=== PATIENT | female | born 1980 | race Hispanic/Latino ===

== ENCOUNTER → 2017-07-06 14:00 | Day surgery (SDC) | payer SELFPAY ==
--- NOTE | 2017-07-13 05:30 | HP.PCM_ITS ---
(1) Sterilization Status: Acute History and Physical Date of Admission: 07/13/17 Intake Vital Signs 3 05/30/17 Height 4 ft 9 in 05/30/17 Weight: 170 lb 05/30/17 Body Mass Index (BMI) 36.8 05/30/17 Blood Pressure 98/64 05/30/17 Blood Pressure Location Rt brachial 05/30/17 Blood Pressure Position Sitting Allergies Penicillins Adverse Reaction (Verified 05/30/17 10:04) Unknown Medications levothyroxine 88 mcg tablet PO 05/30/17 [History Confirmed 05/30/17] Pregancy History 2 3 Elective abortions Hx Para 2 Spontaneous abortions Hx # Term Pregnancies Ectopic pregnancies Hx # Pregnancies Multiple births # of living children Past Pregnancies Del. Date Name GA/Weeks Outcome Route Bth Weight Gen Labor Lgth Anesthesia Del Locatn Provider FOB Unknown Prasad 2010 Male [facility] Unknown [place] [facility] Medical History Adult hypothyroidism (Acute) C/C x2 (Acute) ALAINA I (cervical intraepithelial neoplasia I) (Acute) D & C (Acute) Social History Smoking Status: Never smoker alcohol intake: never substance use type: does not use what type of physical activity do you participate in: none, walking frequency: 5-6 times per week duration: 30-45 minutes/day seatbelt use: always do you feel safe at home: Yes additional social history: Kunal HPI 36 yo desires sterilization and mirena IUD removal. Female Reproductive History Control Method: mirena Questions: Metorrhagia: No, Sexually active: Yes, PCB: No ROS Const Constitutional: Reports as per HPI and weight gain; denies poor appetite, fatigue, increased appetite or weight loss Cardio Card: Denies chest pain Resp Resp: Denies dyspnea or cough GI GI: Reports as per HPI; denies bloating, abdominal pain, constipation, vomiting or nausea : Reports as per HPI, vaginal odor, urinary frequency and other; denies blood in urine, vaginal itching, vaginal dryness, vaginal discharge, urinary urgency, urinary incontinence, pelvic pain, painful urination, difficulty urinating, prolapse symptoms or nipple discharge Skin Skin/Breast: Denies breast pain, breast skin changes, nipple discharge, breast lump or changing lesions Exam Const General: cooperative, healthy appearing, comfortable, no acute distress, well developed, well groomed [facility] Head: normal to inspection, normocephalic Ears: hearing grossly normal bilaterally, external ears normal Nose: external nose normal Face and sinus: normal facial exam Neck Neck: normal visual inspection, full ROM, no lymphadenopathy Thyroid: thyroid normal Chest Chest palpation & inspection: normal inspection of the chest Breast inspection: normal inspection of the breasts, normal inspection of the axillae Breast palpation: normal palpation of the breasts, normal palpation of the axillae, no axillary lymphadenopathy Resp Effort & Inspection: normal respiratory effort GI Inspection: normal to inspection, non-distended Palpation: no guarding, soft, no hepatosplenomegaly General: bladder normal to palpation External Female Exam: normal external appearance, normal appearance of the urethra, no lesions Urethra: normal appearance of the urethra, normal palpation Speculum Exam - Vagina: normal appearance of the vagina, normal vaginal discharge Speculum Exam - Cervix: normal appearance of the cervix, no cervical discharge, no lesions, nontender, other (strings seen) Bimanual Exam- Vagina & Uterus: No cervical tenderness, normal bimanual exam, uterine size normal, bladder normal to palpation, uterine mobility normal, uterine consistency normal, uterus non-tender, no cervical motion tenderness Bimanual Exam- Adnexa, other: normal adnexae, no adnexal masses, adnexae non- tender Skin General: no rashes or lesions noted Neuro General: alert, moves all extremities, no focal motor deficits Extrem General: no pedal edema, normal to inspection Psych Appearance: grossly normal Mental Status: mental status grossly normal Affect: normal affect Speech and Movement: speech and movement normal Attitude: cooperative Assessment & Plan Problems sterilization request Plan mirena IUD removal and laparoscopic bilateral salpingectomy Orders
[2017-07-13 08:07] LABS: Internal QC Validated? YES +Cl - CLEAR BKGD; Pregnancy, Urine Negative Negative
[2017-07-13 08:14] LABS: Hemoglobin 12.9 g/dl (12.0-15.0); Mean Corp Hgb Conc 33.1 g/gl (32-36); Mean Corpuscular Hgb 29.5 pg (27.0-32.0); Mean Corpuscular Volume 89.2 fL (81-99); Mean Platelet Vol. 9.8 fl (6.2-12.0); Platelet Count 223 K/mm3 (150-450); RBC Distribution Width CV 13.1 % (11.6-14.6); RBC Distribution Width SD 42.6 fl (35.1-43.9); Red Blood Count 4.37 M/mm3 (4.2-5.4); Scan Indicated on CBC? Y/N NO; White Blood Count 4.9 K/mm3 (4.4-11.0)
[2017-07-13 08:16] VITALS: BP 119/70; PULSE 67; RESP 16; TEMP 36; O2SAT 100; BMI 37.5
--- NOTE | 2017-07-13 08:57 | PCM.OPRPT ---
Problem List (1) Sterilization Status: Acute Report of Operation Date of Procedure: 07/13/17 - cancelled Pre-Operative Diagnosis: sterilization and iud removal Surgery/Procedure Performed:: laparoscopic bilateral salpingectomy and mirena IUD removal- cancelled due to elevated tsh Description of Surgical Findings:: cancelled due to elevated TSH
--- OUTSIDE RECORDS SUMMARY | 2017-09-15 14:17 | XMS RPT_ITS | Clinical Summary ---
:1980 Author Organization [facility], [facility] Address [address] [place] [id number] Phone Care Team Providers Name Role Phone Jessica Tena MD Conditions or Problems Problem Name Problem Onset Status Entry Provider Comment Standard Annotate Code Date Date Description Dysuria 64594189 Active Christelle S Dysuria (SNOMED CT) / [place] SALES ENABLEMENT SPECIALIST Vaginal 743889252 Active Christelle S Vaginal irritation (SNOMED CT) / [place] irritation SALES ENABLEMENT SPECIALIST Medications Medication Instructions Start Stop Generic Name NDC Provider Date Date SYNTHROID 88 LEVOTHYROXINE [id number] Christelle S MCG TABS 5 SODIUM [place] SALES ENABLEMENT SPECIALIST Medications Administered No information available. Allergies, Adverse Reactions, Alerts Allergy Name Reaction Description Start Date Severity Status Provider PENICILLIN V Critical Active Christelle S [place] POTASSIUM SALES ENABLEMENT SPECIALIST Results Date Name Value Unit Range Flag Description Office Visit: Yeast Infection MEDS REVIEW Done Documentation of current medications (procedure) FALLRSKASSES No Fall risk assessment ORALTOBACUSE Never Tobacco smoking status INIS SMOK STATUS Never smoker Tobacco smoking status [facility] Microbiology: Culture, Genital Comprehensive ZZ-GE-unk . GE use only - for LinkLogic import when terms are not otherwise specified Plan of Care Type Date Detail Pending order *CUV - Culture, VAG/CX Comprehensive Pending order *CUUID - Urine TYSON Culture - Identificatn Pending order *CUV - Culture, VAG/CX Comprehensive Pending order *CUUID - Urine TYSON Culture - Identificatn Procedures Code Procedure Name Date Entry Date CPT-94589 UA Dipstick (Office) Vital Signs Date Name Value Unit Description BMI (Body Mass Index) 34.09 kg/m2 Body Mass Index [Ratio] Body Temperature 98.6 [degF] temperature E&M Body Temperature 37.00 [place] temperature in centigrade E&M BP Diastolic 71 mm[Hg] blood pressure, diastolic - 8462-4 BP Systolic 106 mm[Hg] blood pressure, systolic - 8480-6 Heart Rate 80 /min pulse rate E&M - 8867-4 Height 59 [in_us] height E&M - 8302-2 Height 149.86 cm height in centimeters E&M Respiratory Rate 16 /min respiratory rate E&M - 9279-1 Weight Measured 168.8 [lb_av] weight E&M - 3141-9 Weight Measured 76.57 kg weight in kilograms E&M
--- OUTSIDE RECORDS SUMMARY | 2017-09-15 14:17 | XMS RPT_ITS | Clinical Summary ---
:1980 Author Organization [facility], [facility] Address [address] [place] [address] Phone Care Team Providers Name Role Phone DEZ Stewart RN, Rufina Sharma Unavailable Unavailable Conditions or Problems Problem Name Problem Onset Status Entry Provider Comment Standard Annotate Code Date Date Description Dysuria 84530739 Active Christelle S Dysuria (SNOMED CT) / [place] SOLDERER BARREL RIBS Vaginal 073628908 Active Christelle S Vaginal irritation (SNOMED CT) / [place] irritation SOLDERER BARREL RIBS Medications Medication Instructions Start Stop Generic Name NDC Provider Date Date SYNTHROID 88 LEVOTHYROXINE [id number] Christelle S MCG TABS 5 SODIUM [place] SOLDERER BARREL RIBS Medications Administered No information available. Allergies, Adverse Reactions, Alerts Allergy Name Reaction Description Start Date Severity Status Provider PENICILLIN V Critical Active Christelle S [place] POTASSIUM SOLDERER BARREL RIBS Results Date Name Value Unit Range Flag Description Office Visit: Yeast Infection MEDS REVIEW Done Documentation of current medications (procedure) FALLRSKASSES No Fall risk assessment ORALTOBACUSE Never Tobacco smoking status NHIS SMOK STATUS Never smoker Tobacco use [facility] Microbiology: Culture, Genital Comprehensive ZZ-GE-unk Vancomycin $ GE use only - for LinkLogic 0.5 S import when terms are not otherwise specified Plan of Care Type Date Detail Appointment 09:50 AM Jessica Tena MD, [address] [place] [address], [address] Floor, [place], [address], Pending order *CUV - Culture, VAG/CX Comprehensive Pending order *CUUID - Urine TYSON Culture - Identificatn Pending order *CUV - Culture, VAG/CX Comprehensive Pending order *CUUID - Urine TYSON Culture - Identificatn Procedures Code Procedure Name Date Entry Date CPT-50743 UA Dipstick (Office) Vital Signs Date Name [...]
--- OUTSIDE RECORDS SUMMARY | 2017-09-15 14:17 | XMS RPT_ITS | Clinical Summary ---
:1980 Author Organization [facility], [facility] Address [address] [place] [address] Phone Care Team Providers Name Role Phone DEZ Stewart RN, Rufina Sharma Unavailable Unavailable Conditions or Problems Problem Name Problem Onset Status Entry Provider Comment Standard Annotate Code Date Date Description Dysuria 82772343 Active Christelle S Dysuria (SNOMED CT) / Mild[place] HARPOON ENGAGEMENT PLANNING OPERATOR Vaginal 812951336 Active Christelle S Vaginal irritation (SNOMED CT) / [place] irritation HARPOON ENGAGEMENT PLANNING OPERATOR Medications Medication Instructions Start Stop Generic Name NDC Provider Date Date SYNTHROID 88 LEVOTHYROXINE [id number] Christelle S MCG TABS 5 SODIUM [place] HARPOON ENGAGEMENT PLANNING OPERATOR Medications Administered No information available. Allergies, Adverse Reactions, Alerts Allergy Name Reaction Description Start Date Severity Status Provider PENICILLIN V Critical Active Christelle S [place] POTASSIUM [place]POON ENGAGEMENT PLANNING OPERATOR Results Date Name Value Unit Range Flag Description Office Visit: Yeast Infection MEDS REVIEW Done Documentation of current medications (procedure) FALLRSKASSES No Fall risk assessment ORALTOBACUSE Never Tobacco smoking status NHIS SMOK STATUS Never smoker Tobacco use [facility] Microbiology: Culture, Genital Comprehensive ZZ-GE-unk Vancomycin $ GE use only - for LinkLogic 0.5 S import when terms are not otherwise specified Plan of Care Type Date Detail Appointment 09:50 AM Jessica Tena MD, [address] [place] [address], [address] Floor, [place], [address], Pending order *CUV - Culture, VAG/CX Comprehensive Pending order *CUUID - Urine TYSON Culture - Identificatn Pending order *CUV - Culture, VAG/CX Comprehensive Pending order *CUUID - Urine TYSON Culture - Identificatn Procedures Code Procedure Name Date Entry Date CPT-60791 UA Dipstick (Office) Vital Signs Date Name [...]
--- OUTSIDE RECORDS SUMMARY | 2017-09-15 14:17 | XMS RPT_ITS | Clinical Summary ---
:[address] [facility], [facility] Address [address] [place] [address] Phone Care Team Providers Name Role Phone DEZ Stewart RN, Rufina Sharma Unavailable Unavailable Conditions or Problems Problem Name Problem Onset Status Entry Provider Comment Standard Annotate Code Date Date Description Dysuria 24307152 Active Christelle S Dysuria (SNOMED CT) / [place] EHS SPECIALIST Vaginal 843681170 Active Christelle S Vaginal irritation (SNOMED CT) / Mild[place] irritation EHS SPECIALIST Medications Medication Instructions Start Stop Generic Name NDC Provider Date Date SYNTHROID 88 LEVOTHYROXINE [id number] Christelle S MCG TABS 5 SODIUM [place] EHS SPECIALIST Medications Administered No information available. Allergies, Adverse Reactions, Alerts Allergy Name Reaction Description Start Date Severity Status Provider PENICILLIN V Critical Active Christelle S [place] POTASSIUM EHS SPECIALIST Results Date Name Value Unit Range Flag Description Office Visit: Yeast Infection MEDS REVIEW Done Documentation of current medications (procedure) FALLRSKASSES No Fall risk assessment ORALTOBACUSE Never Tobacco smoking status NHIS SMOK STATUS Never smoker Tobacco use [facility] Microbiology: (P) Culture, Genital Comprehensive ZZ-GE-unk . GE use only - for LinkLogic import when terms are not otherwise specified Plan of Care Type Date Detail Appointment 09:50 AM Jessica Tena MD, [address] [facility], [address] Floor, [place], [address], Pending order *CUV - Culture, VAG/CX Comprehensive Pending order *CUUID - Urine TYSON Culture - Identificatn Pending order *CUV - Culture, VAG/CX Comprehensive Pending order *CUUID - Urine TYSON Culture - Identificatn Procedures Code Procedure Name Date Entry Date CPT-66303 UA Dipstick (Office) Vital Signs Date Name [...]
--- OUTSIDE RECORDS SUMMARY | 2017-09-15 14:18 | XMS RPT_ITS | Clinical Summary ---
:1980 Author Organization [facility] Address [address] [place] [phone] Phone Care Team Providers Name Role Phone [place] METAL TILE SETTER, Christelle Mott Unavailable Conditions or Problems Problem Name Problem Onset Status Entry Provider Comment Standard Annotate Code Date Date Description Dysuria 50179073 Active Christelle S Dysuria (SNOMED CT) / [place] METAL TILE SETTER Vaginal 422638861 Active Christelle S Vaginal irritation (SNOMED CT) / [place] irritation METAL TILE SETTER Medications Medication Instructions Start Stop Generic Name NDC Provider Date Date SYNTHROID 88 LEVOTHYROXINE [id number] Christelle S MCG TABS 5 SODIUM [place] METAL TILE SETTER Medications Administered No information available. Allergies, Adverse Reactions, Alerts Allergy Name Reaction Description Start Date Severity Status Provider PENICILLIN V Critical Active Christelle [place] POTASSIUM METAL TILE SETTER Results Date Name Value Unit Range Flag Description Office Visit: Yeast Infection MEDS REVIEW Done Documentation of current medications (procedure) FALLRSKASSES No Fall risk assessment ORALTOBACUSE Never Tobacco smoking status NHIS SMOK STATUS Never smoker Tobacco use [facility] Plan of Care Type Date Detail Appointment 11:20 AM Christelle Levy METAL TILE SETTER, [address] [facility], [address] Floor, [place], [address], Appointment 09:50 AM Jessica Tena MD, [address] [facility], [address] Floor, [place], [address], Pending order *CUV - Culture, VAG/CX Comprehensive Pending order *CUUID - Urine TYSON Culture - Identificatn Procedures Code Procedure Name Date Entry Date CPT-11347 UA Dipstick (Office) Vital Signs Date Name [...]
--- OUTSIDE RECORDS SUMMARY | 2017-09-15 14:18 | XMS RPT_ITS ---
:1980 Author Organization OHIP Care Team Providers Name Role Phone ANAMARIA KEANE (FIELD COUNSEL) Attending Unavailable ADELINE LOVELACE Attending Unavailable ADELINE LOVELACE Referring Unavailable MIGUEL CYR Attending Unavailable ADELINE LOVELACE Referring Unavailable SOCO CERVANTES Attending Unavailable ADELINE LOVELACE Referring Unavailable Katharina Koroma Attending Unavailable PROVIDER, UNKNOWN Referring Unavailable No, PCP Primary Care Unavailable Christelle Levy Attending Unavailable Karan Lovelace Primary Care Unavailable Jessica Tena Attending Unavailable Karan Lovelace Referring Unavailable Karan Lovelace Primary Care Unavailable Jessica Tena Attending Unavailable Karan Lovelace Primary Care Unavailable Jessica Tena Attending Unavailable Jessica Tena Referring Unavailable Jessica Tena Consulting Unavailable Karan Lovelace Primary Care Unavailable Jessica Tena Attending Unavailable Jessica Tena Referring Unavailable Karan Lovelace Primary Care Unavailable PROBLEMS PROBLEMS DATE TYPE CONDITION / CODE ATTENDING STATUS SOURCE 09/05/2017 Admitting Calcaneal spur, left Zeeshan Koroma [facility] Diagnosis foot / Katharina System M77.32(ICD-10) Repository 08/16/2017 Active Abnormal weight gain NA Active [place] / R63.5(ICD-10) [facility] Repository 08/09/2017 Active Hypothyroidism, NA Active [facility] unspecified / [facility] E03.9(ICD-10) [facility] Repository 04/21/2017 Unknown DYSURIA / [place], Active [facility] R30.0(ICD-10) [facility] Repository 04/21/2017 Unknown OTHER SPECIFIED Mildred, Active [facility] NONINFLAMMATORY [facility] / N89.8(ICD-10) Repository 11/15/2016 Active Pain in left lower NA Active [facility] leg / Clinic Main M79.662(ICD-10) [facility] Repository 11/15/2016 Active Unknown / GRAYK, Zeeshan [facility] UNK(Medicity [facility] Main Unknown) [facility] Repository PROCEDURES PROCEDURES No Procedure Records FoundRESULTS RESULTS CR CALCANEUS 2+ VIEWS Observed: 09/05/2017 Status: F Source: [facility] LEFT 1:38 PM SYSTEM REPOSITORY Patient Name: BELA NICOLAS Diagnostic Radiology * Exam Date/Time 09/05/2017 11:35:00 EDT Exam CR Calcaneus 2+ Views Left Ordering Physician KATHARINA KOROMA Accession Number [id number] CPT4 Codes 87484 () Reason For Exam stress fracture left calc Report LEFT CALCANEUS CLINICAL INDICATION: Stress fracture Axial and lateral plain films of the left calcaneus were obtained. COMPARISON: None FINDINGS: No fracture or dislocation of the calcaneus is identified. There is no abnormal soft tissue swelling. No radiopaque foreign body is seen. No periosteal reaction is seen. There is slight degenerative spurring of the plantar aspect of the calcaneus. IMPRESSION: Mild degenerative spurring of the plantar aspect of the calcaneus. No fracture or dislocation of the left calcaneus is seen. Report Dictated on Final Dictating Physician: GALINA AVILA Signed Date and Time: 2017 1:38 pm Signed by: GALINA AVILA Transcribed Date and Time: 2017 1:39 PROGRESS Observed: 09/04/2017 Status: COMPLETED Source: [place] 1:01 PM [facility] REPOSITORY HNO ID: [id number]: Holly Nolan MaService: (none) Author Type: (none)Type: Progress NotesFiled: 09/04/2017 1:02 PMNote Text:Spoke to patient and she sees an commissioned police officer and they follow hermedicationHolly Nolan Ma CORTISOL, SALIVA Collected: 08/21/2017 Status: F Source: [place] 11:04 PM [facility] REPOSITORY TYPE CODE TESTS RESULT OUT OF REFERENCE UNITS RANGE LAB SCOR ug/dL 0.054 Cortisol, Saliva Result Comment: (NOTE)INTERPRETIVE INFORMATION: Cortisol, SalivaEffective 07/04/2005For collection at 2300 hr. the normal cortisol concentration isless than 0.112 ug/dL. Patients with Cushings Syndrome haveconcentrations of 0.112 ug/ dL or greater. a.m. ([id number]) p.m. (noon-1800)Males 2.5-7 years 0.034-0.645 ug/dL 0.053-0.607 ug/dL 8-11 years 0.084-0.839 ug/dL less than 0.215 ug/dL 12-18 years 0.021-0.883 ug/dL less than 0.259 ug/dL 19-30 years 0.112-0.743 ug/dL less than 0.308 ug/dL 31-50 years 0.122-1.551 ug/dL less than 0.359 ug/dL 51 and older 0.112-0.812 ug/dL less than 0.228 ug/ dLFemales 2.5-7 years 0.034-0.645 ug/dL 0.053-0.607 ug/dL 8-11 years 0.084-0.839 ug/dL less than 0.215 ug/dL 12-18 years 0.021-0.883 ug/dL less than 0.259 ug/ dL 19-30 years 0.272-1.348 ug/dL less than 0.359 ug/dL 31-50 years 0.094- 1.515 ug/dL less than 0.181 ug/dL 51 and older 0.149-0.739 ug/dL 0.022-0.254 ug/dLPerformed by rapt.[facility] [place] [address] brr.eSentire, Hakan Kitchen MD, Lab. Director Performed By: #### SCORT ####[address] [place], [place] [phone] CORTISOL, SALIVA Collected: 08/20/2017 Status: F Source: [place] 11:04 PM [facility] REPOSITORY TYPE CODE TESTS RESULT OUT OF REFERENCE UNITS RANGE LAB SCOR ug/dL 0.040 Cortisol, Saliva Result Comment: (NOTE)INTERPRETIVE INFORMATION: Cortisol, SalivaEffective 07/04/2005For collection at 2300 hr. the normal cortisol concentration isless than 0.112 ug/dL. Patients with Cushings Syndrome haveconcentrations of 0.112 ug/ dL or greater. a.m. (3950-0537) p.m. (noon-1800)Males 2.5-7 years 0.034-0.645 ug/dL 0.053-0.607 ug/dL 8-11 years 0.084-0.839 ug/dL less than 0.215 ug/dL 12-18 years 0.021-0.883 ug/dL less than 0.259 ug/dL 19-30 years 0.112-0.743 ug/dL less than 0.308 ug/dL 31-50 years 0.122-1.551 ug/dL less than 0.359 ug/dL 51 and older 0.112-0.812 ug/dL less than 0.228 ug/ dLFemales 2.5-7 years 0.034-0.645 ug/dL 0.053-0.607 ug/dL 8-11 years 0.084-0.839 ug/dL less than 0.215 ug/dL 12-18 years 0.021-0.883 ug/dL less than 0.259 ug/ dL 19-30 years 0.272-1.348 ug/dL less than 0.359 ug/dL 31-50 years 0.094- 1.515 ug/dL less than 0.181 ug/dL 51 and older 0.149-0.739 ug/dL 0.022-0.254 ug/dLPerformed by [facility] [place] [address] hab.eSentire, Hakan Kitchen MD, Lab. Director Performed By: #### SCORT ####[facility] [address] [place], [place] [phone] TSH Collected: 08/16/2017 Status: F Source: [place] 9:43 AM [facility] REPOSITORY TYPE CODE TESTS RESULT OUT OF RANGE REFERENCE UNITS LAB TSH 0.400-5.500 uU/mL TSH 0.861 Result Comment: If the patient is , TSH reference range varies by gestational period:First Trimester 0.100-2.500 uU/mLSecond Trimester 0.200-3.000 uU/ mLThird Trimester 0.300-3.000 uU/mLReferences: 1. De Eliceo L, Tameka M, Mat EK, et al. Management of Thyroid Dysfunction during and : An Endocrine Society Clinical Practice Guideline. J Clin Endocrinol Metab, 2012:97:0124-8106. 2. Dangelo BLUE. Overview of thyroid disease in . UpToDate. 2016. Accessed on November 27, 2015. Performed By: #### TSH ####[facility], [place] [phone] FREE T3 Collected: 08/16/2017 Status: F Source: [place] 9:43 AM [facility] REPOSITORY TYPE CODE TESTS RESULT OUT OF RANGE REFERENCE UNITS LAB FREET3 2.3-4.1 pg/mL Free 3.0 T3 Performed By: #### FREET3, FT4, HBA1C ####[facility] [place], [place] [phone] FREE T4 Collected: 08/16/2017 Status: F Source: [place] 9:43 AM [facility] REPOSITORY TYPE CODE TESTS RESULT OUT OF RANGE REFERENCE UNITS LAB FT4 0.9-1.7 ng/dL Free 1.3 T4 Performed By: #### FREET3, FT4, HBA1C ####[facility] [place], [place] [phone] HEMOGLOBIN A1C Collected: 08/16/2017 Status: F Source: [place] 9:43 AM [facility] REPOSITORY TYPE CODE TESTS RESULT OUT OF REFERENCE UNITS RANGE LAB HGBA1C 4.3-5.6 % Hemoglobin 5.2 A1c LAB HBA0 mg/dL Est. Average 103 Glucose Result Comment: eAG: (Estimated average glucose) is a calculated value from HgbA1c and is branch service representative of the average blood glucose level in the last 2-3 month period. Performed By: #### FREET3, FT4, HBA1C ####[facility] [place], [place] [phone] PROGRESS Observed: 08/16/2017 Status: COMPLETED Source: [place] 9:05 AM [facility] REPOSITORY HNO ID: [id number]: Soco Mcgillice: (none)Author Type: PhysicianType: Progress NotesFiled: 08/16/2017 9:33 AMNote Text:CONSULTING PHYSICIAN:SelfMy final recommendations will be communicated back to the requestingphysician by way of shared Medical record or a letter via Bookya.S mailSubjective:Bela Nicolas is a 36 year old female here to establish care forhypothyroidism.Her main concern is weight gainShe is physically active-she runs 3 miles dailyStates that she has gained 10 lbs in the last 3-6 months+hair loss- she has noticed clumps of hair falling outCurrent treatment: Synthroid 88 mcg dailyGeneral symptoms:Fatigue: NoWeight change: see aboveAppetite change: NoMenstrual irregularities: No, currently has IUDChange in bowel habits: NoTemperature intolerance: NoDry skin: NoShe had 2 pregnanciesNo gestational diabetesREVIEW OF SYSTEMS:GENERAL:Fever - NoChanges in weight - see aboveNEUROLOGICAL:Numbness, tingling or sensation of pins and needles - NoHeadaches-noHEAD, EYES, EARS, NOSE, AND THROAT:Changes in hearing - NoChanges in vision - NoCARDIOVASCULAR:Chest pain or pressure - NoPalpitations - NoRESPIRATORY:Cough - NoWheezing - NoShortness of breath - NoGASTROINTESTINAL:Abdominal discomfort - NoNausea - NoVomiting - NoEXTREMITY :Edema (swelling) - Noclaudication-NoMUSCULOSKELETAL:Muscle pain or ache - NoArthralgia-NoSkin:Rash - NoPruritus-NoENDOCRINE:Diabetes - NoThyroid disorder - +hypothyroidismPSYCHOLOGICAL:Depression - NoALLERGIES:ALLERGIESAllergen Reactions- Penicillins CHILDHOOD REACTION- Seasonal [Other]MEDICATIONS:Current Outpatient Prescriptions on File Prior to Visit:levothyroxine (SYNTHROID) 88 mcg tablet Take 1 tablet by mouth once daily.Take on empty stomach.levonorgestrel (MIRENA) 20 mcg /24 hr (5 years) IUD 1 Each by INTRAUTERINEroute continuous.albuterol HFA (PROAIR HFA ) 90 mcg/actuation inhaler Inhale 2 Puffs asinstructed every 4 hours as needed (FOR COUGH OR WHEEZE).No current facility-administered medications on file prior to visit.PAST MEDICAL HISTORY:PAST MEDICAL HISTORYDiagnosis Date- Galactorrhea not associated with childbirth- Other abnormal Papanicolaou smear of cervix and 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/ no tx- Perforation of tympanic membrane, unspecified- PIH ( induced hypertension) last - PMH - PAST MEDICAL HISTORY OF HEPATITIS A AGE 11 MONTHS- Red blood cell antibody positive, compatible PRBC difficult to [id number] anti c- Unspecified hypothyroidism HypothyroidismPAST SURGICAL HISTORY:PAST SURGICAL HISTORYProcedure Laterality Date- BLOOD TRANSFUSION- DELIVERY ONLY 07/02/2010 , low transverse- DELIVERY ONLY 12/12/2011 low transverse- COLPOSCOPY (VAGINOSCOPY) 2006 Colposcopy- DANDC, DIAG AND/OR THERAPEUTIC 02/29/2008 Dilation AND curettage- TYP MEMBR REP W OR W/O PATCH Tympanoplasty/ bilaterallyFAMILY HISTORY:FAMILY HISTORYProblem Relation Age of Onset- Adopted : Yes- PATIENT ADOPTED [OTHER] OtherSOCIAL HISTORY:Social History Marital status: Spouse name: Gary Years of education: 13.5 Number of children: 2Occupational 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 Pupils are equally round. Extraocular movementsare intact.Mucous membranes moist, no erythemaNeck supple, no cervical lymphadenopathyThyroid: normal size, normal texture, no palpable nodulesLungs: Breathing unlabored, clear to auscultation. No wheezing, rhonchi,ralesHeart regular rate and rhythm, no murmerMusculoskeletal: Muscular strength intact, No joint swelling, deformity,or tendernessNeuro: Gait normal. Sensation grossly intact. Normal DTR's at patellaAbdomen:Normal abdominal sounds, non tender to palpation, no massesExtremities: without edema, good peripheral pulsesSkin: no rashes/ erythemaLAB:TSHDate Value Ref Range Xaqpck0708/09/2017 1.320 0.400 - 5.500 uU/mL FinalComment:If the patient is , TSH reference range varies by gestationalperiod:First Trimester 0.100-2.500 uU/mLSecond Trimester 0.200-3.000 uU/mLThird Trimester 0.300-3.000 uU/mLReferences: 1. Bain L, Tameka M, Mat BARTON, et al. Management ofThyroid Dysfunction during and : An Endocrine SocietyClinical Practice Guideline. J Clin Endocrinol Metab, 2012:97:7299-8239.2.Dangelo BLUE. Overview of thyroid disease in . UpToDate. 2016.Accessed onNovember 27, 2015. Free T4Date Value Ref Range Epfbim7212/31/2015 0.8 0.7 - 1.8 ng/dL Final ASSESSMENT/PLAN:1) Weight gain2) Hair loss3) Primary hypothyroidism4) obesity/BMI 34Clinically she appears euthyroidCheck A1c to rule out diabetesNo signs suggestive of chanelle's but given weight gain will check salivacortisol to rule it outCheck Free T3 and T4We discussed switching to Bruno or Nature throidNo signs suggestive of Androgene excessIf the labs are normal, then my suggestion is to see dermatology regardinghair lossI will send patient a message in my chart once the lab results becomeavailableFollow up to be determined based on labs CNOV Observed: 08/16/2017 Status: COMPLETED Source: [place] 8:45 AM [facility] REPOSITORY Office Visit (ENDMED) ---------MIGUELANGEL,BELA Mckay ([id number]) 1980 [facility] Department08/16/17 8:45 AM SOCO CERVANTES During your visit today, we recorded the following information about you: Pulse Blood pressure Weight Height 68/minute 102/73 79.6 kg 1.51 Mónica Cervantes MD 08/16/2017 9:33 AM SignedCONSULTING PHYSICIAN:Kamran final recommendations will be communicated back to the requesting physicianby way of shared Medical record or a letter via U.S mailSubjective:Bela Nicolas is a 36 year old female here to establish care forhypothyroidism.Her main concern is weight gainShe is physically active-she runs 3 miles dailyStates that she has gained 10 lbs in the last 3-6 months+hair loss-she has noticed clumps of hair falling outCurrent treatment: Synthroid 88 mcg dailyGeneral symptoms:Fatigue: NoWeight change: see aboveAppetite change: NoMenstrual irregularities: No, currently has IUDChange in bowel habits: NoTemperature intolerance: NoDry skin: NoShe had 2 pregnanciesNo gestational diabetesREVIEW OF SYSTEMS:GENERAL:Fever - NoChanges in weight - see aboveNEUROLOGICAL:Numbness, tingling or sensation of pins and needles - NoHeadaches-noHEAD, EYES, EARS, NOSE, AND THROAT:Changes in hearing - NoChanges in vision - NoCARDIOVASCULAR:Chest pain or pressure - NoPalpitations - NoRESPIRATORY:Cough - NoWheezing - NoShortness of breath - NoGASTROINTESTINAL:Abdominal discomfort - NoNausea - NoVomiting - NoEXTREMITY: Edema (swelling) - Noclaudication-NoMUSCULOSKELETAL:Muscle pain or ache - NoArthralgia-NoSkin: Rash - NoPruritus-NoENDOCRINE:Diabetes - NoThyroid disorder - + hypothyroidismPSYCHOLOGICAL:Depression - NoALLERGIES:ALLERGIESAllergen Reactions- Penicillins CHILDHOOD REACTION- Seasonal [Other]MEDICATIONS:Current Outpatient Prescriptions on File Prior to Visit: levothyroxine (SYNTHROID) 88 mcg tablet Take 1 tablet by mouth once daily. Takeon empty stomach.levonorgestrel (MIRENA) 20 mcg/24 hr (5 years) IUD 1 Each by INTRAUTERINE routecontinuous.albuterol HFA ( PROAIR HFA) 90 mcg/actuation inhaler Inhale 2 Puffs asinstructed every 4 hours as needed (FOR COUGH OR WHEEZE).No current facility-administered medications on file prior to visit.PAST MEDICAL HISTORY:PAST MEDICAL HISTORYDiagnosis Date- Galactorrhea not associated with childbirth- Other abnormal Papanicolaou smear of cervix and cervical HPV(795.09) 05/17 mild dysplasia/ no tx- Perforation of tympanic membrane, unspecified- PIH ( induced hypertension) last - PMH - PAST MEDICAL HISTORY OF HEPATITIS A AGE 11 MONTHS- Red blood cell antibody positive, compatible PRBC difficult to obtain 2011 anti c- Unspecified hypothyroidism HypothyroidismPAST SURGICAL HISTORY:PAST SURGICAL HISTORYProcedure Laterality Date- BLOOD TRANSFUSION- DELIVERY ONLY 07/02/2010 C- section, low transverse- DELIVERY ONLY 12/12/2011 low transverse- COLPOSCOPY (VAGINOSCOPY) 2006 Colposcopy- DANDamp;C, DIAG AND/OR THERAPEUTIC 02/29/2008 Dilation ANDamp; curettage- TYP MEMBR REP W OR W/O PATCH Tympanoplasty/ bilaterallyFAMILY HISTORY:FAMILY HISTORYProblem Relation Age of Onset- Adopted: Yes- PATIENT ADOPTED [OTHER] OtherSOCIAL HISTORY:Social History Marital status : Spouse name: Gary Years of education: 13.5 Number of children: 2Occupational 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 Pupils are equally round. Extraocular movements areintact.Mucous membranes moist, no erythemaNeck supple, no cervical lymphadenopathyThyroid: normal size, normal texture, no palpable nodulesLungs: Breathing unlabored, clear to auscultation. No wheezing, rhonchi, ralesHeart regular rate and rhythm, no murmerMusculoskeletal : Muscular strength intact, No joint swelling, deformity, ortendernessNeuro: Gait normal. Sensation grossly intact. Normal DTR's at patellaAbdomen:Normal abdominal sounds, non tender to palpation , no massesExtremities: without edema, good peripheral pulsesSkin: no rashes/ erythemaLAB:TSHDate Value Ref Range Rajbkd7508/09/2017 1.320 0.400 - 5.500 uU/mL FinalComment:If the patient is , TSH reference range varies by gestational period:First Trimester 0.100-2.500 uU/ mLSecond Trimester 0.200-3.000 uU/mLThird Trimester 0.300-3.000 uU/mLReferences: 1. De Eliceo L , Tameka M, Mat EK, et al. Management ofThyroid Dysfunction during and : An Endocrine SocietyClinical Practice Guideline. J Clin Endocrinol Metab, 2012:97:2543- 2565. 2.Dangelo BLUE. Overview of thyroid disease in . UpToDate. 2016. Accessed onNovember 27, 2015.----- -----Free T4Date Value Ref Range Virphd1312/31/2015 0.8 0.7 - 1.8 ng/dL Final ASSESSMENT/PLAN:1 ) Weight gain2) Hair loss3) Primary hypothyroidism4) obesity/BMI 34Clinically she appears euthyroidCheck A1c to rule out diabetesNo signs suggestive of chanelle's but given weight gain will check salivacortisol to rule it outCheck Free T3 and T4We discussed switching to Bruno or Nature throidNo signs suggestive of Androgene excessIf the labs are normal, then my suggestion is to see dermatology regarding hairlossI will send patient a message in my chart once the lab results become availableFollow up to be determined based on labsSoco Cervantes MD 08/16/2017 9:18 AM SignedGet labs drawnDo the saliva testI will send you a message in my chart once the lab results become availableFollow up to be determined based on labsReferring Provider: SELF [200]Allergies As of Date: 08/16/2017 Noted Allergy ReactionPENICILLINS 11/24/2009 Comments: CHILDHOOD REACTIONSEASONAL [Other] 01/16/2008Date Reviewed: 08/16/2017Reviewed by: Soco Cervantes - Fully AssessedReason for Visit: Thyroid Problem [110]Primary Visit Diagnosis: Abnormal weight gain [R63.5] Other Visit Diagnoses:Hair loss [L65.9] Primary hypothyroidism [E03.9] Class 1 obesity without serious comorbidity with body mass index (BMI) of 34.0 to 34.9 in adult, unspecified obesity type [E66.9, Z68.34]Order(s):T3 FREE BLD [SQFREET3] Order #: [id number] FUTURE T4 FREE/FREE THYROX [SQFT4] Order #: [id number] FUTURE CORTISOL SALIVA [SQSCORT] Order # : [id number] FUTURE HGB A1C [OKRUS6U] Order #: [id number] FUTUREPrescriptions as of 2017 Sig: LEVOTHYROXINE 88 MCG TABLET Take 1 tablet by mouth once d* LEVONORGESTREL 20 MCG/24 HR (* 1 Each by INTRAUTERINE route * ALBUTEROL SULFATE HFA 90 MCG/* Inhale 2 Puffs as instructed *Problem List As Of Date 08/16/2017 Noted Resolved Galactorrhea not Associated with Childbirth [N6*INVALID FOR*07/15/2009 MISSED [O02.1] INVALID FOR*02/29/2008 THREATEN ABORT-ANTEPART [O20.0] INVALID FOR* Hypothyroidism [E03.9] INVALID FOR*03/18/2016 More... SUPRF HIGH RISK NEC [V23.89] [O09.899]INVALID FOR*07/16/2010 Poor grth- antepart [O36.5990] INVALID FOR*07/16/2010 Transient hypertension of , antepartum* INVALID FOR*07/16/2010 Supervision of other high-risk [O09.8*INVALID FOR*12/21/2011 More... Previous section [Z98.891] INVALID FOR*12/21/2011 More... Proteinuria [ R80.9] INVALID FOR*12/21/2011 More... Seroma [DLL2069] INVALID FOR*12/26/2011 depression [F53] INVALID FOR*12/2015 More... Class 1 obesity without serious comorbidity wit*INVALID FOR* Primary hypothyroidism [E03.9] INVALID FOR* Other instructions from your clinician: Get labs drawn Do the saliva test I will send you a message in my chart once the lab results become available Follow up to be determined based on labsEncH2020er Number: [id number] Status: Closed by SOCO CERVANTES DO on 08/16/17 TSH Collected: 08/09/2017 Status: F Source: [place] 4:47 [facility] RE[facility] TYPE CODE TESTS RESULT OUT OF RANGE REFERENCE UNITS LAB TSH 0.400-5.500 uU/mL TSH 1.320 Result Comment: If the patient is , TSH reference range varies by gestational period:First Trimester 0.100-2.500 uU/mLSecond Trimester 0.200-3.000 uU/ mLThird Trimester 0.300-3.000 uU/mLReferences: 1. Puri, Tameka M, Mat EK, et al. Management of Thyroid Dysfunction during and : An Endocrine Society Clinical Practice Guideline. J Clin Endocrinol Metab, 2012:97:9034-4560. 2. Dangelo DS. Overview of thyroid disease in . UpToDate. 2016. Accessed on November 27, 2015. Performed By: #### TSH ####[facility], [place] [phone] OPERATIVE REPORT Observed: 07/16/2017 Status: F Source: [place] 6:58 AM [facility] REPOSITORY [facility] SYSTEMMedical Records [address] [place], [place] [address]Lmqhsnsds Asstrv51/01/18 0857MR#: [id number] Acct: [id number]: BELA NICOLAS Rep #: [id number]: 1980 36 From: Jessica Tena MDPCP: Karan Lovelace MD [place] [facility] [place]Location: SDCProblem List(1) SterilizationStatus: AcuteReport of OperationDate of Procedure: 07/13/17 - cancelledPre-Operative Diagnosis: sterilization and iud removalSurgery/Procedure Performed:: laparoscopic bilateral salpingectomy and mirena IUD removal-cancelled due to elevated tshDescription of Surgical Findings::cancelled due to elevated TSH07/16/17 0658 <Electronically signed by Jessica Tena MD>Date Jessica Tena MDCC: Karan Lovelace MD; Jessica Tena MD Signed TYPE AND SCREEN Collected: 07/13/2017 Status: F Source: [place] 8:30 AM [facility] REPOSITORY Order Comment: RESULTS CALLED TO OLAMIDE Bowles 07/13/17 1205 David Arnold.REPORT READ BACK BY SAME.Reason for Type AND Screen/Red Cells: SURGERY TYPE CODE TESTS RESULT OUT OF RANGE REFERENCE UNITS LAB B10.0800 Normal BLOOD O TYPE GEL POSITIVE LAB B100.4000 High Antibody POSITIVE Screen Performed By: #### B101.7450, B1.1999 ####[facility] [address] [place], [address] ANTIBODY PANEL ID Collected: 07/13/2017 Status: F Source: [place] 8:30 AM [facility] REPOSITORY Order Comment: RESULTS CALLED TO OLAMIDE Bowles 07/13/17 1205 David Arnold.REPORT READ BACK BY SAME.Reason for Type AND Screen/Red Cells: SURGERY TYPE CODE TESTS RESULT OUT OF REFERENCE UNITS RANGE LAB B101.1999 ANTIBODY PANEL Result Comment: [id number] c Performed By: #### B101.7450, B1.1999 ####[facility] [id number] [facility] [place], [place], [address] THYROID STIM HORMONE Collected: 07/13/2017 Status: F Source: [place] (TSH) 8:06 AM [facility] REPOSITORY TYPE CODE TESTS RESULT OUT OF RANGE REFERENCE UNITS LAB L501.9520 High 0.358-3.74 uIU/mL TSH 31.80 Performed By: #### L400.7600, L501.9520 ####[facility] [address] [facility] [place], [place], [address] CBC-COMPLETE BLOOD CNT Collected: 07/13/2017 Status: F Source: [place] NO DIFF 8:06 AM [facility] REPOSITORY TYPE CODE TESTS RESULT OUT OF RANGE REFERENCE UNITS LAB L100.1000 Normal 4.4-11.0 K/mm3 WBC 4.9 LAB L100.1200 Normal 4.2-5.4 M/mm3 RBC 4.37 LAB L100.1300 Normal 12.0-15.0 g/dl HGB 12.9 LAB L100.1400 Normal 37-47 % HCT 39.0 LAB L100.1500 Normal 81-99 fL MCV 89.2 LAB L100.1600 Normal 27.0-32.0 pg MCH 29.5 LAB L100.1700 Normal 32-36 g/gl MCHC 33.1 LAB L100.1810 Normal 11.6-14.6 % RDW 13.1 CV LAB L100.1820 Normal 35.1-43.9 fl RDW 42.6 SD LAB L100.1900 Normal 150-450 K/mm3 PLT 223 LAB L100.2000 Normal 6.2-12.0 fl MPV 9.8 Performed By: #### L100.0500 ####[facility] [address] [place], [address] ,URINE Collected: 07/13/2017 Status: F Source: [place] 8:00 AM [facility] REPOSITORY TYPE CODE TESTS RESULT OUT OF REFERENCE UNITS RANGE LAB L400.8000 Normal Negative HCGUQUAL Negative Result Comment: Very dilute urine specimens, as indicated by a low specificgravity, may not contain branch service representative levels of hCG.If is still suspected, a first morning urinespecimen should be collected 48 hours later and tested. Performed By: #### L400.7600, L501.9520 ####[facility] [id number] [facility] [place], [address] HISTORY AND PHYSICAL Observed: 07/13/2017 Status: F Source: [place] EXAM 5:30 AM [facility] REPOSITORY [facility] SYSTEM[facility] Records [address] [place], [place] [address]Qpeewoo and Haktyvsb46/01/18 0528MR#: [id number] Acct: [id number]: BELA NICOLAS Rep #: [id number]: 1980 36 From: Jessica Tena MDPCP: Karan Lovelace MD Status: PRE MIC YLocation: SD(1) SterilizationStatus: AcuteHistory and PhysicalDate of Admission: 07/13/17IntakeVital Signs05/30/17 Height 4 ft 9 inAllergiesPenicillins Adverse Reaction (Verified 05/30/17 10:04)UnknownMedicationslevothyroxine 88 mcg tablet PO 05/30/17 [History Confirmed 05/30/17]Pregancy HistoryGravida 3 Elective abortionsHx Para 2 Spontaneous abortionsPast PregnanciesDel. DatName GA/WeeksOutcome Route [facility] LocaProviderFOBe ht en ia Sam Prasad 20 C-sectio Male [facility]11 nUnknown [place] C- sectio W[facility]37 nPFSHMedical History ( Reviewed 05/30/17 @ 10:08 by Deirdre [place])Adult hypothyroidism (Acute)C/C x2 (Acute) ALAINA I (cervical intraepithelial neoplasia I) (Acute)D AND C (Acute)Social HistorySmoking Status: Never smokeralcohol intake: neversubstance use type: does not usewhat type of physical activity do you participate in: none, walkingfrequency: 5-6 times per weekduration: 30-45 minutes/dayseatbelt use: alwaysdo you feel safe at home: Yesadditional social history: OnpchmuCCP73 yo desires sterilization and mirena IUD removal.Female Reproductive HistoryBirth Control Method: mirenaQuestions: Metorrhagia: No, Sexually active: Yes, PCB: NoROSConstConstitutional: Reports as per HPI and weight gain;denies poor appetite, fatigue, increased appetite or weight lossCardioCard: Denies chest painRespResp: Denies dyspnea or coughGIGI: Reports as per HPI;denies bloating, abdominal pain, constipation, vomiting or nauseaGUGU: Reports as per HPI, vaginal odor, urinary frequency and other;denies blood in urine, vaginal itching, vaginal dryness, vaginal discharge, urinary urgency,urinary incontinence, pelvic pain, painful urination, difficulty urinating, prolapse symptomsor nipple dischargeSkinSkin/Breast: Denies breast pain, breast skin changes, nipple discharge, breast lump or changinglesionsExamConstGeneral: cooperative, healthy appearing, comfortable, no acute distress, well developed, wellgroomedHENMTHead: normal to inspection, normocephalicEars: hearing grossly normal bilaterally, external ears normalNose: external nose normalFace and sinus: normal facial examNeckNeck: normal visual inspection, full ROM, no lymphadenopathyThyroid: thyroid normalChestChest palpation AND inspection: normal inspection of the chestBreast inspection: normal inspection of the breasts, normal inspection of the axillaeBreast palpation: normal palpation of the breasts, normal palpation of the axillae, no axillarylymphadenopathyRespEffort AND Inspection: normal respiratory effortGIInspection: normal to inspection, non-distendedPalpation: no guarding, soft, no hepatosplenomegalyGUGeneral: bladder normal to palpationExternal Female Exam : normal external appearance, normal appearance of the urethra, no lesionsUrethra : normal appearance of the urethra, normal palpationSpeculum Exam - Vagina: normal appearance of the vagina, normal vaginal dischargeSpeculum Exam - Cervix: normal appearance of the cervix, no cervical discharge, no lesions,nontender, other ( strings seen)Bimanual Exam- Vagina AND Uterus: No cervical tenderness, normal bimanual exam, uterine sizenormal, bladder normal to palpation, uterine mobility normal, uterine consistency normal,uterus non-tender, no cervical motion tendernessBimanual Exam- Adnexa, other: normal adnexae, no adnexal masses, adnexae non-tenderSkinGeneral: no rashes or lesions notedNeuroGeneral: alert, moves all extremities, no focal motor deficitsExtremGeneral: no pedal edema, normal to inspectionPsychAppearance: grossly normalMental Status: mental status grossly normalAffect: normal affectSpeech and Movement: speech and movement normalAttitude: cooperativeAssessment AND PlanProblemssterilization requestPlanmirena IUD removal and laparoscopic bilateral hbfepwlqsabviNtzgyr31/01/18 0530 < Electronically signed by Jessica Tena MD>Date Jessica Tena [facility] Signature: Date (if applicable)CC: Karan Lovelace MD; Jessica Tena MD 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 Observed: 06/06/2017 Status: F Source: [place] REPORT 6:27 AM [facility]'s [address] [place] [address] [id number] VISITDate of Service: 05/30/17MR#: [id number] Acct: [id number]: BELA NICOLAS Rep #: [id number]: 1980 Provider: Jessica Tena MDAge/Sex: 36/F [place] [facility] [place].BWCStatus: SignedIntakeVital Signs05/30/17 Height 4 ft 9 inIntakeVisit Reasons: 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 DatName GA/WeeksOutcome Route [facility] LocaProviderFOBe ht en ia tnUnknown Prasad 20 C-sectio Male [facility]11 nUnknown [place] C- sectio [facility]37 nPFSHMedical History ( Reviewed 05/30/17 @ 10:08 by Deirdre [place])Adult hypothyroidism (Acute)C/C x2 (Acute) ALAINA I (cervical intraepithelial neoplasia I) (Acute)D AND C (Acute)Social HistorySmoking Status: Never smokeralcohol intake: neversubstance use type: does not usewhat type of physical activity do you participate in: none, walkingfrequency: 5-6 times per weekduration: 30-45 minutes/dayseatbelt use: alwaysdo you feel safe at home: Yesadditional social history: JeffreyHPIEncounter for routine gynecological examination:Details: BELA NICOLAS is a 36 year old who presents for annual exam.Last PAP: up to dateHistory of abnormal PAP: noLast mammogram: neverHistory of abnormal mammogram:Colon cancer screening:Other preventative health care screenings: Nutrition, exercise, and routine health maintenance recommendations reviewed and handout given.Calcium/vitamin D recommendations reviewed/handout given.Return in one year for annual examination or as needed.Female Reproductive HistoryBirth Control Method : mirenaQuestions: Metorrhagia: No, Sexually active: Yes, PCB: NoROSConstConstitutional: Reports as per HPI and weight gain;denies poor appetite, fatigue, increased appetite or weight lossCardioCard: Denies chest painRespResp : Denies dyspnea or coughGIGI: Reports as per HPI;denies bloating, abdominal pain , constipation, vomiting or nauseaGUGU: Reports as per HPI, vaginal odor, urinary frequency and other;denies blood in urine, vaginal itching, vaginal dryness, vaginal discharge, urinary urgency,urinary incontinence, pelvic pain, painful urination , difficulty urinating, prolapse symptomsor nipple dischargeSkinSkin/Breast: Denies breast pain, breast skin changes, nipple discharge, breast lump or changinglesionsExamConstGeneral: cooperative, healthy appearing, comfortable, no acute distress, well developed, wellgroomedHENMTHead: normal to inspection, normocephalicEars: hearing grossly normal bilaterally, external ears normalNose : external nose normalFace and sinus: normal facial examNeckNeck: normal visual inspection, full ROM, no lymphadenopathyThyroid: thyroid normalChestChest palpation AND inspection: normal inspection of the chestBreast inspection: normal inspection of the breasts, normal inspection of the axillaeBreast palpation: normal palpation of the breasts, normal palpation of the axillae, no axillarylymphadenopathyRespEffort AND Inspection: normal respiratory effortGIInspection: normal to inspection, non-distendedPalpation: no guarding, soft, no hepatosplenomegalyGUGeneral: bladder normal to palpationExternal Female Exam: normal external appearance, normal appearance of the urethra, no lesionsUrethra: normal appearance of the urethra, normal palpationSpeculum Exam - Vagina: normal appearance of the vagina, normal vaginal dischargeSpeculum Exam - Cervix: normal appearance of the cervix, no cervical discharge, no lesions,nontender, other (strings seen)Bimanual Exam- Vagina AND Uterus: No cervical tenderness, normal bimanual exam, uterine sizenormal, bladder normal to palpation, uterine mobility normal, uterine consistency normal,uterus non-tender, no cervical motion tendernessBimanual Exam- Adnexa, other: normal adnexae, no adnexal masses, adnexae non-tenderSkinGeneral: no rashes or lesions notedNeuroGeneral: alert, moves all extremities, no focal motor deficitsExtremGeneral: no pedal edema, normal to inspectionPsychAppearance: grossly normalMental Status: mental status grossly normalAffect: normal affectSpeech and Movement: speech and movement normalAttitude: cooperativeAssessment AND PlanProblems1. Encounter for gynecological examination with abnormal finding Z01.411; Z01.4112. Vaginal odor N89.83. Urinary frequency R35.0PlanCervical cancer screening: up to dateBreast cancer screening: clinicalSTD prevention and contraceptive options including their risks, benefits, and alternatives werereviewed with the patient and she chooses: sterilization- will schedule. mirena inEncouraged maintenance of a healthy weight and active lifestyle and handout given.Calcium/vitamin D recommendations provided.Annual exam handout including recommendations for good health guidelines and basic screeninginformation given.Problem list up to date, see problem list details for any additional plan information.follow up in one year for annual health maintenance exam or sooner if needed.OrdersOrders:MedicationsDiscontinued:prednisone Take 4 tablets daily for 3 days, then 3 daily10 mg PO UD Deirdre Felgarfor 3 days, then 2 daily for 3 days, then 1 a day for 3 days then 1 QOD for 3 doses. Discontinued Reason: Pt no longer [id number] <Electronically signed by Jessica Tena MD>Date Jessica Tena [facility] Signature: Date (if applicable)CC: Observed: 05/30/2017 Status: F Source: [place] CULTURE, GENITAL 10:00 AM [facility] COMPREHENSIVE REPOSITORY Gram StainScore = 1 Interpretation: 0-3 Normal, 4-6 Intermediate, 7-10 Positive BV Gram Stain 2+ Epithelial cells 3+ Gram positive rods No Gram negative diplococci Gent Cult Comp#1 If further studies are desired, please contact the Microbiology Laboratory within 48 hours. No yeast, Gardnerella, or Neisseria isolated. ORGANISM 1: Streptococcus group BAmount Growth 3+ Performed By: #### M100.1600 ####[facility] [address] [place], [address] Observed: 04/05/2017 Status: F Source: [place] CULTURE, GENITAL 3:32 PM [facility] COMPREHENSIVE REPOSITORY Order Date: 04/05/17 Order Info: [id number] - *CUV - Culture, VAG/CX Comprehensive Comments: Specimen Description:vagGram StainScore = 0 Interpretation: 0-3 Normal, 4-6 Intermediate, 7-10 Positive BV Gram Stain 4+ Gram positive rods 2+ Epithelial cells No White Blood Cells No Gram negative diplococci Gent Cult CompNormal vaginal isaías isolated. No yeast, Gardnerella or Neisseria isolated. ORGANISM 1: Streptococcus agalactiae (B)Amount Growth 1+ Streptococcus agalactiae (B): REACTION Ampicillin $ <=0.25 S Benzylpenicillin NF < =0.06 S Clindamycin $$ <=0.25 S Inducable Clindamycin Resistan - Linezolid $$$$ <=2 S Vancomycin $ 0.5 S(NF) indicates non-formulary drug at [facility]. Approval by Infectious Disease Specialist required before non-formulary drugs may be ordered and/or dispensed. * CLSI guidelines does not recommend testing of cephalosporins. This interpretation is deduced from Beta-lactam/penicillin results. Performed By: #### M100.1600 ####[facility] [id number] [place], [address] Observed: 04/05/2017 Status: F Source: [place] CULTURE, URINE 11:58 AM [facility] REPOSITORY Urine CultureBelow infection level. If further studies are desired, please contact the Microbiology Laboratory within 48 hours. ORGANISM 1: Streptococcus group BColony Count <1000 Performed By: #### M100.0650 ####[facility] [address] [place], [address] GROUP A STREP BY Collected: 12/28/2016 Status: F Source: [place] PCR 4:28 PM [facility] REPOSITORY TYPE CODE TESTS RESULT OUT OF REFERENCE UNITS RANGE LAB [facility] G[facility] Throat Swab Specimen Source LAB PCRGAS Group A Negative for Strep PCR Group A Streptococcus by PCR. Result Comment: This test was developed and its performance characteristics determined by [facility] [place] ([facility]).It has not been cleared or approved by the FDA. [facility] is regulated under CLIA as qualified to perform high-complexity testing. This test is used for clinical purposes. It should not be regarded as investigational or for research. Performed By: #### GASPCR ####[facility] [address] [place], [place] [phone] PROGRESS Observed: 12/28/2016 Status: COMPLETED Source: [place] 9:11 AM [facility] REPOSIT[facility] HNO ID: [id number]: Betsy Ortega) BognerService: (none)Author Type: Physician AssistantType: Progress NotesFiled: 12/28/2016 9: 50 AMNote Text:12/28/2016Patient presents with:Sore Throat: x 4 daysPain, Sinus: x 4 daysEar Pain: x 4 daysSUBJECTIVE: This is a 36 year old that is here today for Complaint(s) ofsore throat and sinus pressure x 4 days. Having KYLAH ear pressure , no pain. + frontal sinus pain KYLAH. + thick purulent green drainage. 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/ no tx- Perforation of tympanic membrane, unspecified- PIH ( induced hypertension) last - PMH - PAST MEDICAL HISTORY OF HEPATITIS A AGE 11 MONTHS- Red blood cell antibody positive, compatible PRBC difficult to [id number] anti c- Unspecified hypothyroidism HypothyroidismALLERGIES Penicillins; Seasonal [Other]MEDICATIONSCurrent Outpatient Prescriptions:levothyroxine (SYNTHROID) 88 mcg tablet Take 1 tablet by mouth once daily.Take on empty stomach.levonorgestrel (MIRENA) 20 mcg/24 hr (5 years) IUD 1 Each by INTRAUTERINEroute continuous.albuterol HFA (PROAIR HFA) 90 mcg/actuation inhaler Inhale 2 Puffs asinstructed every 4 hours as needed (FOR COUGH OR WHEEZE).No current facility-administered medications for this visit.SOCIAL HISTORYSocial History Marital status: Spouse name: Gary Years of education: 13.5 Number of children: 2Occupational 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 TMs normal BILNOSE/SINUS Nares normal. Septum midline. Mucosa normal. No drainage. +KYLAH maxillary sinus tenderness.THROAT normal, no erythemaNECK Supple, no adenopathy;HEART RRR with normal S1 and S2,LUNG clear to auscultation, no wheezing, rhonchi, ralesASSESSMENT/PLAN:1. Sore throat - ICD9: 462, ICD10: J02.9- Rapid Strep negative in the office today and Throat culture pending- Discussed supportive care treatment with fluids, rest and analgesia.- The patient may also use OTC cough and cold meds as needed, behind thecounter Pseudoephedrine, warm salt water gargles, throat lozenges and/orOTC throat spray as needed and nasal saline gtts and suction prn.- The patient should follow up in 3-5 days if symptoms persist or worsen- Call back if drooling, increased temperature, symptoms of dehydrationand/or still sick in one week- RAPID STREP TEST B/O- GROUP A STREPTOCOCCUS BY PCR- SULFAMETHOXAZOLE 800 MG-TRIMETHOPRIM 160 MG TABLETDiscussed likely viral etiology-sinusitis. rx for abx printed-start in7-10 days if not improving, sooner if worsening.The patient indicates understanding of these issues and agrees with theplan.SHANNAN Silverio-12/28/2016 CNOV Observed: 12/28/2016 Status: COMPLETED Source: [place] 9:00 AM [facility] REPOSITORY Office Visit (WSTR) ---------BELA NICOLAS ([id number]) 1980 FDate Time Provider Department12/28/16 9:00 AM BETSY BYRNE (ELKIN) WSTR During your visit today, we recorded the following information about you: Temperature Pulse Respiration Blood pressure 98.2 degrees 68/minute 16/minute 102/70 Weight 77.1 kgBetsy Byrne PA-C 12/28/2016 9:50 AM Signed12/28/2016Patient presents with:Sore Throat: x 4 daysPain, Sinus: x 4 daysEar Pain: x 4 daysSUBJECTIVE: This is a 36 year old that is here today for Complaint(s) of sorethroat and sinus pressure x 4 days. Having KYLAH ear pressure, no pain. +frontal sinus pain KYLAH. + thick purulent green drainage. 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 TMs normal BILNOSE/SINUS Nares normal. Septum midline. Mucosa normal. No drainage. + BILmaxillary sinus tenderness.THROAT normal, no erythemaNECK Supple, no adenopathy;HEART RRR with normal S1 and S2,LUNG clear to auscultation, no wheezing, rhonchi, ralesASSESSMENT/PLAN:1. Sore throat - ICD9: 462, ICD10: J02.9- Rapid Strep negative in the office today and Throat culture pending- Discussed supportive care treatment with fluids, rest and analgesia. - The patient may also use OTC cough and cold meds as needed, behind thecounter Pseudoephedrine, warm salt water gargles, throat lozenges and/or OTCthroat spray as needed and nasal saline gtts and suction prn.- The patient should follow up in 3-5 days if symptoms persist or worsen- Call back if drooling, increased temperature, symptoms of dehydration and/orstill sick in one week- RAPID STREP TEST B/O- GROUP A STREPTOCOCCUS BY PCR- SULFAMETHOXAZOLE 800 MG-TRIMETHOPRIM 160 MG TABLETDiscussed likely viral etiology-sinusitis. rx for abx printed-start in 7-10days if not improving, sooner if worsening.The patient indicates understanding of these issues and agrees with the plan.SHANNAN Silverio-C7Referring Provider: SELF [200]Allergies As of Date: 12/28/2016 Noted Allergy ReactionPENICILLINS 11/24/2009 Comments: CHILDHOOD REACTIONSEASONAL [Other] 01/16/2008Date Reviewed: 12/28/2016Reviewed by: Allison Barnett LPN - Fully AssessedReason for Visit: Sore Throat [200] Cmt: x 4 days Pain, Sinus [857] Cmt: x 4 days Ear Pain [817] Cmt: x 4 daysPrimary Visit Diagnosis:Sore throat [J02.9]Order(s): RAPID STREP TEST B/O [1753133] Order #: [id number] GROUP A STREPTOCOCCUS BY PCR [SQGASPCR] Order #: [id number] sulfamethoxazole-trimethoprim (BACTRIM DS) 800-160 mg per tabletTake 1 tablet by mouth twice daily for 10 days.Disp: 20 tabletRfl: 0Prescriptions as of 12/28/2016 Sig: LEVOTHYROXINE 88 MCG TABLET Take 1 tablet by mouth once d* LEVONORGESTREL 20 MCG/24 HR (* 1 Each by INTRAUTERINE route * SULFAMETHOXAZOLE 800 MG-TRIME* Take 1 tablet by mouth twice * ALBUTEROL SULFATE HFA 90 MCG/* Inhale 2 Puffs as instructed *Problem List As Of Date 12/28/2016 Noted Resolved Galactorrhea not Associated with Childbirth [N6 *INVALID FOR*07/15/2009 MISSED [O02.1] INVALID FOR* THREATEN ABORT-ANTEPART [O20.0] INVALID FOR*02/29/2008 Hypothyroidism [ E03.9] INVALID FOR*03/18/2016 More... SUPRF HIGH RISK NEC [ V23.89] [O09.899]INVALID FOR*07/16/2010 Poor grth-antepart [O36.5990] INVALID FOR*09/2010 Transient hypertension of , antepartum*INVALID FOR*07/16/2010 Supervision of other high-risk [O09.8*INVALID FOR*12/21/2011 More... Previous section [ Z98.891] INVALID FOR*12/21/2011 More... Proteinuria [R80.9] INVALID FOR*12/21/2011 More... Seroma [QGU8029] INVALID FOR*12/26/2011 depression [F53] INVALID FOR*03/18/2016 More...Prescriptions ordered this encounter Disp Refills Start End SULFAMETHOXAZOLE 800 MG-TRIMETHOPRIM* 20 t* 0 12/28/2016 01/07/2017 Class: Print RX Cmt: Ok to give generic equivalent Route: ORAL Sig: Take 1 tablet by mouth twice daily for 10 days. Status:Closed by BETSY BYRNE PA-C on 12/28/16 XR TIBIA FIBULA Observed: 11/15/2016 Status: F Source: [place] AP/LAT 4:24 PM [facility] REPOSITORY * * *Final Report* * *DATE OF EXAM: Nov 15 2016 4:24PM WOX 2043 - XR TIBIA FIBULA AP/LAT - LEFT / REASON: Pain in left lower leg * * * * Physician Interpretation * * * * TECHNIQUE: Left tibia/fibula, 2 viewsHISTORY: Pain in left lower legCOMPARISON: None.RESULTS: AP and lateral views were obtained. No fracture, dislocation or significant degenerative change. No focal lesion.IMPRESSION: No acute abnormality.Reach Lift Truck Driver: RICHARD Transcribe Date/Time: Nov 15 2016 4:54PDictated by : PAULINE GONZALEZ MDThibimal examination was interpreted and the report reviewed and electronically signed by: PAULINE GONZALEZ MD on Nov 15 2016 4:55PM EST PROGRESS Observed: 11/15/2016 Status: COMPLETED Source: [place] 4:17 PM [facility] REPOSITORY HNO ID: [id number]: Robert Sharma (Rt) Caterina Capps: (none)Author Type: TechnicianType: Progress NotesFiled: 11/15/2016 4:22 PMNote Text: Radiology Service Progress NotePATIENT NAME: Bela NicolasMRN: [id number] OF SERVICE: November 15, 2016TIME: 4:17 PMPATIENT IDENTITY VERIFICATION COMPLETED USING TWO (2) METHODS: Patientconfirmed name verbally and Date of .PATIENT GENDER DATA: Female. status: : NoBreastfeeding status: NO.PATIENT RELEVANT IMPLANT DATA REVIEWED: Not ApplicableRADIOLOGY DEPARTMENT: General X-ray: Exam(s) Completed: Lower ExtremityX-Ray(s): Tibia Fibula, Left:PERIPHERAL IV DATA: Not applicableSIGNED BY: Robert Capps, RTJune 2016 4:17 PM PROGRESS Observed: 11/15/2016 Status: COMPLETED Source: [place] 9:48 AM [facility] REPOSITORY HNO ID: [id number]: Adeline Bowles Sayice: (none) Author Type: PhysicianType: Progress NotesFiled: 11/15/2016 1:48 PMNote Text:L king pain. Past 2 wks . Has been running for years, limping whiletrying to run.R side sciatica. Past few days. Back not hurting.She has new orthotic recently. 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 Pain started since then. Shedoesn't notice the orthotic hurting.BP 92/60 (BP Site: Left Arm, BP Position: Sitting, BP Cuff Size: LargeAdult) Pulse 64 Resp 16 Wt 76.6 kg (168 lb 12.8 oz) BMI 35.28kg/y8Jnxkpij appears well. No acute distress.She is obese.Pain on palpation of R buttock between SI joint and greater trochanter.Pain on palpation medial to the L tibiaAssessment/Plan:(M79.662) Pain in left king ( primary encounter diagnosis)Comment: king splint possible though the orthotic may be the culpritPlan: XR TIBIA FIBULA AP/LAT LT try without the insert a few days.( E03.9) Acquired hypothyroidismComment: on Rx.Plan: levothyroxine (SYNTHROID) 88 mcg tablet, TSH BLD Needs refill until February routine lab(G57.01) Pyriformis syndrome, rightComment: likely gait related.Plan: stretch. See massage therapist.RTO PRN .Signed Prescriptions Disp Refills levothyroxine (SYNTHROID) 88 mcg tablet 30 tablet 1 Sig: Take 1 tablet by mouth once daily. Take on empty stomach. WILMAR : Sandra Lovelace MD CNOV Observed: 11/15/2016 Status: COMPLETED Source: [place] 9:20 AM [facility] REPOSITORY Office Visit (FPWADS) ---------BELA NICOLAS ([id number]) 1980 FDate Time Provider Department11/15/16 9:20 AM ADELINE LOVELACE During your visit today, we recorded the following information about you: Pulse Respiration Blood pressure Weight 64/minute 16/minute 92/60 76.6 kgAdeline Lovelace MD 11/15/2016 1:48 PM SignedL king pain. Past 2 wks . Has been running for years , limping while trying torun.R side sciatica. Past few days. Back not hurting.She has new orthotic recently. 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 Pain started since then. She doesn'tnotice the orthotic hurting.BP 92/60 (BP Site: Left Arm, BP Position: Sitting, BP Cuff Size: Large Adult) Pulse 64 Resp 16 Wt 76.6 kg (168 lb 12.8 oz) BMI 35.28 kg/d1Mvnoiag appears well. No acute distress.She is obese.Pain on palpation of R buttock between SI joint and greater trochanter.Pain on palpation medial to the L tibiaAssessment/Plan:(M79.662) Pain in left king (primary encounter diagnosis) Comment: king splint possible though the orthotic may be the culpritPlan: XR TIBIA FIBULA AP/LAT LT try without the insert a few days.(E03.9) Acquired hypothyroidismComment: on Rx.Plan: levothyroxine (SYNTHROID) 88 mcg tablet, TSH BLD Needs refill until February routine lab(G57.01) Pyriformis syndrome, rightComment: likely gait related.Plan: stretch. See massage therapist.RTO PRN .Signed Prescriptions Disp Refills levothyroxine (SYNTHROID) 88 mcg tablet 30 tablet 1 Sig: Take 1 tablet by mouth once daily. Take on empty stomach. WILMAR: Aaw Trinh Provider: SELF [200]Allergies As of Date: 11/15/2016 Noted Allergy ReactionPENICILLINS 11/24/2009 Comments: CHILDHOOD REACTIONSEASONAL [Other] 01/16/2008Date Reviewed: 11/15/2016Reviewed by: Estrella Moeller WATCH TECHNICIAN - Fully AssessedReason for Visit: Right Hip Pain [1554] Cmt: X2 days Leg Pain [1219] Cmt: left king pain X 2 wks, worse last pm.Primary Visit Diagnosis:Pain in left king [M79.662] Other Visit Diagnoses:Acquired hypothyroidism [E03.9] Pyriformis syndrome, right [G57.01]Order(s):levothyroxine ( SYNTHROID) 88 mcg tabletTake 1 tablet by mouth once daily. Take on empty stomach.Disp: 30 tabletRfl : 1 TSH BLD [SQTSH] Order #: [id number] FUTURE XR TIBIA FIBULA AP/LAT LT [6048455- LT] Order #: [id number] FUTUREPrescriptions as of 11/15/2016 Sig: LEVOTHYROXINE 88 MCG TABLET Take 1 tablet by mouth once d* LEVONORGESTREL 20 MCG/24 HR (* 1 Each by INTRAUTERINE route * ALBUTEROL SULFATE HFA 90 MCG/* Inhale 2 Puffs as instructed *Medication notes this encounter HYDROXYZINE HCL 25 MG TABLET >> Estrella Moeller LPN 11/15/2016 9:32 AM & gt;> ESTRELLA MOELLER LPN MonNov 15, 2016 9:32 AM No longer takingProblem List As Of Date 2016 Noted Resolved Galactorrhea not Associated with Childbirth [N6*INVALID FOR*07/15/2009 MISSED [O02.1] INVALID FOR*02/29/2008 THREATEN ABORT -ANTEPART [O20.0] INVALID FOR*02/29/2008 Hypothyroidism [E03.9] INVALID FOR*03/18/2016 More... SUPRF HIGH RISK NEC [V23.89] [O09.899] INVALID FOR*07/16/2010 Poor grth-antepart [O36.5990] INVALID FOR*07/16/2010 Transient hypertension of , antepartum*INVALID FOR*07/16/2010 Supervision of other high-risk [O09.8*INVALID FOR*12/21/2011 More... Previous section [Z98.891] INVALID FOR*12/21/2011 More... Proteinuria [R80.9] INVALID FOR*2011 More... Seroma [GMJ7051] INVALID FOR*12/26/2011 depression [F53] INVALID FOR*03/18/2016 More...Prescriptions ordered this encounter Disp Refills Start End LEVOTHYROXINE 88 MCG TABLET 30 t* 1 2016 Route: ORAL Sig: Take 1 tablet by mouth once daily. Take on empty stomach.Medications Discontinued During This Encounter levothyroxine (SYNTHROID) 88 mcg tab* 30 t* 5 01/02/2016 11/15/2016 Route: ORAL Sig: Take 1 tablet by mouth once daily. Take on empty stomach. Disc : Reason for discontinue is not on file. hydrOXYzine HCl (ATARAX) 25 mg tablet 15 t* 0 10/21/2016 11/15/2016 Route: ORAL Sig: Take 1 tablet by mouth every 4 hours as needed. Disc: Reason for discontinue is not on file. Status:Closed by KARAN LOVELACE MD on 11/15/16 PROGRESS Observed: 10/21/2016 Status: COMPLETED Source: [place] 7:17 PM [facility] REPOSITORY HNO ID: [id number]: Tete Finn ([facility]) Zane: (none)Author Type: Nurse PractitionerType: Progress NotesFiled: 10/21/2016 7:24 PMNote Text:HPI Bela Nicolas is a 35 year old female who presents with complaintspruritic insect bites after running outside few nights ago. States can'ttolerate the itching.Review of SystemsAll other systems reviewed and are negative.Current Outpatient Prescriptions on File Prior to Visit:levothyroxine (SYNTHROID) 88 mcg tablet Take 1 tablet by mouth once daily.Take on empty stomach.levonorgestrel (MIRENA) 20 mcg/24 hr (5 years) IUD 1 Each by INTRAUTERINEroute continuous.albuterol HFA (PROAIR HFA) 90 mcg/actuation inhaler Inhale 2 Puffs asinstructed every 4 hours as needed (FOR COUGH OR WHEEZE).No current facility-administered medications on file prior to visit.PAST MEDICAL HISTORYDiagnosis Date- Galactorrhea not associated with childbirth- Other abnormal Papanicolaou smear of cervix and 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 Insect bite of multiple sites with local reaction - ICD9: 919.4,E906.4, ICD10: W57.XXXA- Follow-up with your PCP in 3-5 days if symptoms have not improved orsooner if symptoms worsen- Discussed red flags and need for immediate medical evaluation if anyoccur.- Discussed supportive care treatment with fluids, rest and analgesia.- Discussed expected course of illness- PREDNISONE 10 MG TABLET- HYDROXYZINE HCL 25 MG TABLETPrescription instructions reviewed with patient as applicable.Patient/parent advised if symptoms do not improve or if symptoms worsensooner, to contact their primary care physician. Potential red flagsymptoms discussed with the patient. Reviewed appropriate action plan totake if red flag symptoms occur. Patient/parent agreeable to treatmentplanTete Izquierdo CNP CNOV Observed: 10/21/2016 Status: COMPLETED Source: [place] 5:00 PM [facility] REPOSITORY Office Visit (WSTR) ---------BELA NICOLAS ([id number]) 1980 FDate Time Provider Department10/21/16 5:00 PM TETE IZQUIERDO (ANA)WSTR During your visit today, we recorded the following information about you: Temperature Pulse Respiration Blood pressure 98.5 degrees 64/minute 16/minute 90/60 Weight 75.5 kgStephanie StrausbaughANA 10/21/2016 7:24 PM SignedHPI Bela Nicolas is a 35 year old female who presents with complaintspruritic insect bites after running outside few nights ago. States can'ttolerate the itching.Review of SystemsAll other systems reviewed and are negative.Current Outpatient Prescriptions on File Prior to Visit:levothyroxine (SYNTHROID) 88 mcg tablet Take 1 tablet by mouth once daily. 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 Insect bite of multiple sites with local reaction - ICD9: 919.4, E906.4,ICD10: W57.XXXA- Follow-up with your PCP in 3-5 days if symptoms have not improved or soonerif symptoms worsen- Discussed red flags and need for immediate medical evaluation if any occur.- Discussed supportive care treatment with fluids, rest and analgesia.- Discussed expected course of illness- PREDNISONE 10 MG TABLET- HYDROXYZINE HCL 25 MG TABLETPrescription instructions reviewed with patient as applicable. Patient/ parentadvised if symptoms do not improve or if symptoms worsen sooner, to contacttheir primary care physician. Potential red flag symptoms discussed with thepatient. Reviewed appropriate action plan to take if red flag symptoms occur.Patient/parent agreeable to treatment planSdrew Izquierdo CNPReferring Provider: SELF [200]Allergies As of Date: 10/21/2016 Noted Allergy ReactionPENICILLINS 11/24/2009 Comments: CHILDHOOD REACTIONSEASONAL [Other] 01/16/2008Date Reviewed: 10/21/2016Reviewed by: Shakira Willoughby Ma - Fully AssessedReason for Visit: Insect Bite [929] Cmt: x3 daysReason For Visit History RecordedPrimary Visit Diagnosis:Insect bite of multiple sites with local reaction [W57.XXXA]Order(s) :predniSONE (DELTASONE) 10 mg tabletTake 4 tabs daily for 3 days, then 2 tabs daily for 3 days, then 1 tab daily for 3 days with food.Disp: 21 tabletRfl: 0 hydrOXYzine HCl (ATARAX) 25 mg tabletTake 1 tablet by mouth every 4 hours as needed.Disp: 15 tabletRfl : 0Prescriptions as of 10/21/2016 Sig: LEVOTHYROXINE 88 MCG TABLET Take 1 tablet by mouth once d* LEVONORGESTREL 20 MCG/24 HR (* 1 Each by INTRAUTERINE route * PREDNISONE 10 MG TABLET Take 4 tabs daily for 3 days,* HYDROXYZINE HCL 25 MG TABLET Take 1 tablet by mouth every * ALBUTEROL SULFATE HFA 90 MCG/* Inhale 2 Puffs as instructed *Problem List As Of Date 10/21/2016 Noted Resolved Galactorrhea not Associated with Childbirth [N6 *INVALID FOR*07/15/2009 MISSED [O02.1] INVALID FOR* THREATEN ABORT-ANTEPART [O20.0] INVALID FOR*02/29/2008 Hypothyroidism [ E03.9] INVALID FOR*03/18/2016 More... SUPRF HIGH RISK NEC [ V23.89] [O09.899]INVALID FOR*07/16/2010 Poor grth-antepart [O36.5990] INVALID FOR*09/2010 Transient hypertension of , antepartum*INVALID FOR*07/16/2010 Supervision of other high-risk [O09.8*INVALID FOR*12/21/2011 More... Previous section [ Z98.891] INVALID FOR*12/21/2011 More... Proteinuria [R80.9] INVALID FOR*12/21/2011 More... Seroma [T14.8] INVALID FOR*12/26/2011 depression [F53] INVALID FOR*03/18/2016 More...Prescriptions ordered this encounter Disp Refills Start End PREDNISONE 10 MG TABLET 21 t* 0 10/21/2016 10/30/2016 Sig: Take 4 tabs daily for 3 days, then 2 tabs daily for 3 days, then 1 tab daily for 3 days with food. HYDROXYZINE HCL 25 MG TABLET 15 t* 0 10/21/2016 Route: ORAL Sig: Take 1 tablet by mouth every 4 hours as needed.Medications Discontinued During This Encounter Chlorpheniramine-HYDROcodone (TUSSIO* 120 * 1 07/15/2016 10/21/2016 Class: Print RX Route: ORAL Sig: Take 5 mL by mouth every 12 hours as needed (PRN COUGH). Disc: Reason for discontinue is not on file. Status:Closed by TETE IZQUIERDO CNP on 10/21/16 ALLERGIES ALLERGIES DATE TYPE / CODE NAME / CODE REACTION SEVERITY SOURCE 07/06/2017 Drug Penicillins/F001 Unknown Unknown [place] Allergy/389786013( 647994[facility] Rep[facility] 04/22/2013 Drug Penicillins/F001 Unknown [place] Allergy/901991553( 820933([facility] 11/24/2009 Drug PENICILLINS [place] Class/251003519([facility] OMED CT) [place] Repository 01/16/2008 Miscellaneous OTHER [place] Allergy/553760497( [facility] SNOMED [facility]) [place] Rep[place] ENCOUNTERS ENCOUNTERS ADMIT/DISCHARGE ACCOUNT NUMBER ADMITTING ENCOUNTER LOCATION SOURCE CLASS 09/05/2017 [id number] Ambulatory [facility] Repository 08/16/2017 [id number] Ambulatory [facility] Repository 08/16/2017/08/17/19 [id number] Ambulatory [address] Repository 08/09/2017 [id number] Ambulatory [facility] Repository 07/13/2017 [id number] Ambulatory BMSBuilding: [place] BMS.CF.[facility] Repository 07/06/2017 [id number] Ambulatory [facility] ding:SDC Repository 05/30/2017 [id number] Ambulatory [facility] ding:[facility]SPEC Repository 05/30/2017/05/30/20 [id number] Ambulatory BMSBuilding: [place] 17 BMS.[facility] Repository 04/05/2017 [id number] Ambulatory [facility] ding:[facility]SPEC Repository 12/28/2016/12/30/19 [id number] Ambulatory [address] Repository 11/15/2016/11/16/19 [id number] Ambulatory [address] Repository 11/15/2016/11/17/19 [id number] Ambulatory [address] Repository 10/21/2016/10/26/19 [id number] Ambulatory [address] Repository PAYERS PAYERS ENCOUNTER GUARANTOR PAYER SUBSCRIBER SOURCE 09/05/2017 Bela HeilmanDOB: Primary Bela HeilmanDOB: Ixchelsis Xi3 Insurance:[employer] [id number] System Yovani Number: Effective Repository [facility], Date: [place] [address]Cko: () 07/13/2017 BELA [id number] Primary BELA HEILMANDOB: [place] YOVANI [id number], Number: [facility] [address]Ilp: [id number] Repository Date:4974-88-48[address] ([facility] [id number], [place] [address]CJ: 07/13/2017 Secondary NOT GIVENUNK [place] Insurance:SELF PAY [facility] Number: Effective Repository Date:2017-07-13 07/06/2017 BELA [id number] Primary NOT GIVENUNK [place] YOVANI Insurance:SELF PAY [facility] [address]Duq: Number: Effective Repository Date:2017-07-06 () 05/30/2017 BELA [id number] Primary BELA HEILMANDOB: [place] YOVANI Insurance:CIGNAPolicy [id number] Hospital, Number: [facility] [address]Uju: [id number] Repository Date:0714-19-40[address] () [address]27[address]IAVZ[place]YRTI, [place] [address]GQ: 05/30/2017 Secondary NOT GIVENUNK [place] Insurance:SELF PAY [facility] Number: Effective Repository Date:2017-05-30 05/30/2017 BELA [id number] Primary KARAN TORRES Insurance:CIGNAPolicy HEILMANDOB: [facility], Number: [id number] [address]Ody: [id number] Repository Date:8466-04-20[address] () [address]39[address]US[place], [place] [address]DN: 05/30/2017 Secondary NOT GIVENUNK [place] Insurance:SELF PAY [facility] Number: Effective Repository Date:2017-05-14 04/05/2017 BELA [id number] Primary KARAN TORRES Insurance:CIGNAPolicy HEILMANDOB: [facility], Number: [id number] [facility]ajo Medical Center [address]Ubi: [id number] Repository Date:[address] [address]APJSLYYURIZ, [place] [address]YT:
== END ==
PROVIDERS: Anesthesiology; Family Provider Family Medicine; PCP Family Medicine; Visit Provider Obstetrics & Gynecology
DX: R94.6 Abnormal results of thyroid function studies (principal); Z53.8 Procedure and treatment not carried out for other reasons
CPT/HCPCS: 36415; 81025; 84443; 85027; 86850; 86870; 86900; J7120

== ENCOUNTER → 2019-01-08 | Outpatient (CLI) | payer BC, SELFPAY ==
[2019-01-08 10:08] VITALS: BMI 37.5
[2019-01-14 08:21] LABS: HPV APTIMA, High Risk Negative (Negative)
== END | disposition home or self-care (01) ==
LOC: LABSPEC 16:55
PROVIDERS: Family Provider Family Medicine; PCP Family Medicine; Referring Provider Nurse Practitioner Women's Health; Visit Provider Nurse Practitioner Women's Health
DX: N89.8 Other specified noninflammatory disorders of vagina (principal); Z12.4 Encounter for screening for malignant neoplasm of cervix
CPT/HCPCS: 87070; 87205; 87624; 88175; G0145

== ENCOUNTER → 2019-06-17 17:48 | Outpatient (CLI) | payer BC, SELFPAY ==
[2019-06-17 13:41] VITALS: BMI 37.5
== END ==
PROVIDERS: Family Provider Family Medicine; PCP Family Medicine; Visit Provider Nurse Practitioner Women's Health
DX: N89.8 Other specified noninflammatory disorders of vagina (principal); R32 Unspecified urinary incontinence
CPT/HCPCS: 87070; 87086; 87088; 87205

== ENCOUNTER → 2020-01-13 14:56 | Outpatient (CLI) | payer BC, SELFPAY ==
[2020-01-13 08:31] VITALS: BMI 37.5
== END ==
PROVIDERS: PCP Family Medicine; Referring Provider Obstetrics & Gynecology; Visit Provider Obstetrics & Gynecology
DX: N39.0 Urinary tract infection, site not specified (principal)
CPT/HCPCS: 87086; 87088

== ENCOUNTER → 2022-12-27 | Outpatient (CLI) | payer OTHER, SELFPAY ==
[2022-12-27 09:36] LABS: Absolute Lymphocyte Count 1.94 X10^3/uL (0.83-4.51); Absolute Neutrophil Count 2.8 X10^3/uL (2.0-7.7); Basophil# 0.04 X10^3/uL; Basophil% 0.8 % (0-1); Eosinophil# 0.19 X10^3/uL; Eosinophils% 3.6 % (0-5); Hematocrit 41.3 % (37-47); Hemoglobin 13.4 g/dL (12.0-15.0); Lymphocyte # 1.94 X10^3/ul (0.83-4.51); Lymphocyte % 36.4 % (19-41); Mean Corp Hgb Conc 32.4 g/dL (32-36); Mean Corpuscular Hgb 28.6 pg (27.0-32.0); Mean Corpuscular Volume 88.2 fL (81-99); Mean Platelet Vol. 9.6 fl (6.2-12.0); Monocyte# 0.37 X10^3/uL; Monocyte% 6.9 % (0-10); NRBC Flagged by Analyzer 0 % (0-5); Neutrophil # 2.77 X10^3/uL (2.7-7.7); Neutrophil % 51.9 % (47-70); Platelet Count 284 K/mm3 (150-450); RBC Distribution Width CV 13.4 % (11.6-14.6); RBC Distribution Width SD 42.9 fl (35.1-43.9); Red Blood Count 4.68 M/mm3 (4.2-5.4); White Blood Count 5.3 K/mm3 (4.4-11.0)
[2022-12-27 10:12] LABS: Vitamin D,25 Hydroxy 36.7 ng/mL
[2022-12-27 10:59] LABS: ALB/GLOB Ratio 0.8 RATIO (0.9-2.4); AST(SGOT) 25 U/L (15-37); Alanine Aminotransfer ALT/SGPT 22 U/L (13-56); Albumin, Serum 3.5 g/dL (3.2-5.0); Alkaline Phosphatase 66 U/L (45-117); Anion Gap 4 (5-15); BUN 11 mg/dL (7-18); BUN/Creat Ratio 14.9 RATIO (10-20); Calcium,Total 8.7 mg/dL (8.5-10.1); Chloride 111 mmol/L (98-107); Creatinine, Serum 0.74 mg/dL (0.55-1.02); EST Glomerular Filtration Rate 92 mL/min (>60); Est Glom Filt Rate - Afr Amer 111 mL/min (>60); Estradiol 47.4 pg/mL; Follicle Stimulating Hormone 3.9 mIU/mL; Globulin 4.5 g/dL (2.2-4.2); Glucose 84 mg/dL (74-106); Potassium 3.9 mmol/L (3.5-5.1); Prolactin 13.2 ng/mL; Sodium Level 139 mmol/L (136-145)
== END | disposition home or self-care (01) ==
PROVIDERS: PCP Family Medicine; Referring Provider Nurse Practitioner Women's Health; Visit Provider Nurse Practitioner Women's Health
DX: R23.2 Flushing (principal); R63.5 Abnormal weight gain; N39.3 Stress incontinence (female) (male); Z13.21 Encounter for screening for nutritional disorder
CPT/HCPCS: 36415; 80053; 82306; 82670; 83001; 84146; 85025